=== PATIENT | female | born 1950 | race Caucasian/White ===

== ENCOUNTER → 2018-09-11 14:01 | Outpatient (CLI) | payer MEDICARE, OTHER, SELFPAY ==
[2018-09-11 08:33] VITALS: BMI 30.1
== END ==
PROVIDERS: Family Provider Family Medicine; PCP Family Medicine; Referring Provider Physician Assistant; Visit Provider Physician Assistant
DX: J02.9 Acute pharyngitis, unspecified (principal)
CPT/HCPCS: 87081

== ENCOUNTER 2023-04-16 15:12 | Emergency (ER) | payer MEDICARE, OTHER, SELFPAY ==
[2023-04-16 15:14] VITALS: BP 131/78; PULSE 89; RESP 18; TEMP 36.1; O2SAT 98; BMI 32.0
--- NOTE | 2023-04-16 16:32 | ED.VIS.FALL ---
HPI HPI - Fall History of Present Illness Chief Complaint: Fall Informant: patient Narrative Narrative: Couple hours ago, patient states she was getting out of her car and her foot got tangled up in the strap of her purse, causing her to fall face first to the pavement as she was getting out. She injured her right face, and scraped her right small finger and her right knee. Last tetanus was 4 years ago according to records in the computer the patient did not know. She denies any loss of consciousness, headache, she did have a wave of nausea but that resolved and no vomiting. No vision changes or issues. States she felt a crack in her face when she fell. [facility] Medical History (Updated 04/16/23 @ 17:[address] Luís Huerta MD) Hypertension Home Medications ascorbic acid (vitamin C) 60 mg lozenges 60 mg PO BID 10/16/17 [History Last Taken Unknown] calcium carbonate 500 mg calcium (1,250 mg) chewable tablet (Calci-Chew) 500 mg PO BID 10/16/17 [History Last Taken Unknown] hydrochlorothiazide 25 mg tablet PO 90 days ##45 10/16/17 [History Last Taken Unknown] multivitamin,iq-chah-[id number] (Complete Multivitamin tablet) 1 tab PO QDAY 10/16/17 [History Last Taken Unknown] simvastatin 40 mg tablet PO 90 days ##90 10/16/17 [History Last Taken Unknown] vitamin B complex (B Complex 1 tablet) 1 tab PO QDAY 10/16/17 [History Last Taken Unknown] Allergy/AdvReac Type Severity Reaction Status Date / Time No Known Allergies Allergy Verified 04/16/23 15:14 Surgical History History of tonsillectomy and adenoidectomy Social History Smoking Status: Never smoker alcohol intake: current alcohol intake frequency: holidays/special occasions only Alcohol type: wine ROS ROS ED Constitutional Constitutional ED: Denies chills or fever(s) Eyes Eyes: Denies change in vision or diplopia ENT ENT ED: Reports facial pain; Denies ear pain, epistaxis or rhinorrhea Cardiovascular Cardiovascular: Denies chest pain or palpitations Respiratory/Chest Respiratory/Chest: Denies cough or dyspnea Gastrointestinal Gastrointestinal: Reports nausea; Denies abdominal pain, diarrhea, melena or vomiting Genitourinary Genitourinary ED: Denies dysuria or hematuria Musculoskeletal Musculoskeletal: Denies back pain, extremity pain or neck pain Integumentary Reports Abrasions; Denies abscess, laceration or rash Neurologic Neurologic: Denies confusion, headache(s), paresthesias or weakness EXAM Physical Exam Const Vital Signs: 04/16/23 15:14 04/16/23 16:40 Temperature 97 F L Temperature Source Temporal Pulse Rate 89 Respiratory Rate 18 Respiratory Effort Normal Blood Pressure 131/78 H Blood Pressure Mean 95 Pulse Ox 98 Oxygen Delivery Method Room Air Positive well nourished and well developed General Appearance ED: well developed and NAD HEENT Reports TM's clear and nasal mucous membranes and turbinates normal HEENT Narrative: Hematoma right superior lateral orbital brim with tenderness. No crepitance, no zygomatic arch tenderness, infraorbital tenderness or infraorbital hypoesthesia. Midface stable. No intraoral dental or nasal injury. Face and Sinus: facial tenderness Tympanic Membrane ED: Yes TM's clear Eyes PERRL and EOMs intact bilaterally Visual Acuity: other Other Details: no entrapment or pain with extraocular movements. No evidence of globe trauma. Neck full ROM and supple General: Negative for tenderness Chest Wall inspection of chest normal and palpation of chest normal Chest: symmetrical chest wall rise; Negative for crepitus or tenderness Resp normal respiratory effort and clear to auscultation bilaterally Percussion: other equal BS bilat Cardio no murmurs Rate: regular rate Rhythm: regular rhythm Back/Spine normal ROM Cervical Spine: Negative for cervical spine tenderness Thoracic Spine / Upper Back: Negative for thoracic spinal tenderness Lumbar Spine / Lower Back: Negative for lumbar spinal tenderness Extremity normal to inspection and full ROM Extremity Narrative: 2 small superficial abrasions to the the right small finger, without bony tenderness or rotational deformity. FDS, FDP, extensor intact. Otherwise hand and upper extremities are atraumatic. There is an abrasion on the anterior knee right lower extremity, there is no bony tenderness effusion limited range of motion, or pain with stressing any ligaments/laxity. General Extremety ED: Negative for tenderness Neuro oriented x3, CN's II-XII intact bilaterally, moves all extremities, no focal motor deficits and no sensory deficits noted [place] Coma Scale: document GCS findings Spontaneous Obeys Commands Oriented 15 Sensorium / Orientation: awake and alert Psych mental status grossly normal and thought process normal Skin Lesions: no lesions Rashes: no rashes MDM MDM MDM Narrative Medical decision making narrative: CT of the head was obtained, I reviewed the images and the report which I agree with, negative for any acute. It includes the area of injured in her right superior orbital brim. Patient reassured, her abrasions were cleansed and dressed, and plan is discharged home with supportive care she agrees that her right hand and knee do not require imaging. Radiography Diagnostic Testing: Clinical Impression(s) from Imaging Studies Brain CT 04/16/23 16:40 IMPRESSION: There is no underlying fracture. Soft tissue swelling of the scalp- right forehead. Electronically Signed: Andre Lovelace MD at 16:53 EDT Reading Location ID and State: [facility] / [place] , Service support , Discharge Plan Triage Chief Complaint: Fall ED Provider: Luís Huerta Dx/Rx/DC Orders Clinical Impression: Abrasion, multiple sites, Contusion of face, Accidental fall, Head injury, closed, without LOC Instructions: ED Facial Contusion Prescriptions: No Action simvastatin 40 mg tablet PO 90 Days Qty: 90 Patient Comments: take 1 tablet by mouth once daily hydrochlorothiazide 25 mg tablet PO 90 Days Qty: 45 Patient Comments: multivitamin,dw-rkps-auvboxbr tablet tablet 1 tab PO QDAY calcium carbonate [Calci-Chew] 500 mg calcium (1,250 mg) tablet,chewable 500 mg PO BID vitamin B complex [B Complex 1] tablet 1 tab PO QDAY ascorbic acid (vitamin C) 60 mg lozenge 60 mg PO BID Primary Care Provider: Yosef Antunez Referrals: Yosef Antunez DO [Primary Care Provider] - As Needed Disposition Disposition: Home, Self Care
--- NOTE | 2023-04-16 16:40 | CT_ITS ---
STUDY: CT BRAIN WITHOUT CONTRAST REASON FOR EXAM: Female, 72 years old. trauma TECHNIQUE: Transaxial CT imaging of the brain was performed without administration of intravenous contrast material. Individualized dose optimization techniques were used for this CT. COMPARISON: None FINDINGS: Normal calvarium. There is no underlying fracture. Soft tissue swelling of the scalp- right forehead. Normal size ventricles and extra-axial spaces for the patient''s age. Normal white matter tracts of the cerebral hemispheres. Normal basal ganglia and thalami. Normal brainstem. Normal cerebellum. There is no intracranial hemorrhage. There are no findings of an acute ischemic infarction. Normal visualized paranasal sinuses. There are calcifications around the cavernous carotid arteries. This is consistent for atherosclerotic disease. ASPECTS 10 CT/Brain/Head without Contrast IMPRESSION: There is no underlying fracture. Soft tissue swelling of the scalp- right forehead. Electronically Signed: Andre Lovelace MD at 16:53 EDT ,
== END 2023-04-16 18:00 | disposition home or self-care (01) ==
PROVIDERS: Emergency Provider Emergency Medicine; PCP Student in an Organized Health Care Education/Training Program; Visit Provider Emergency Medicine
DX: S05.11XA Contusion of eyeball and orbital tissues, right eye, initial encounter (principal); S80.211A Abrasion, right knee, initial encounter; S60.416A Abrasion of right little finger, initial encounter; V48.4XXA Person boarding or alighting a car injured in noncollision transport accident, initial encounter; I10 Essential (primary) hypertension; Z79.899 Other long term (current) drug therapy
CPT/HCPCS: 70450; 99282